=== PATIENT | female | born 1950 | race Caucasian/White ===

== ENCOUNTER 2016-09-30 15:36 | Inpatient (IN) | payer OTHER ==
[~2016-09-30 15:36] MED LIST: ROCURONIUM BROMIDE INJ 50 MG/5 ML VIAL IV ONE; SUCCINYLCHOLINE CHLORIDE INJ 200 MG/10 ML VIAL ONE
[2016-09-30] MEDS ORDERED: DIPH/PERTUSS(ACELL)/TETANUS VAC/PF 0.5 ML SYR (>=10YO) IM ONE (15:41)
[2016-09-30] MEDS ORDERED: CEFAZOLIN 2 GM/D5W RTU 50 ML IV ONE (15:41)
--- NOTE | 2016-09-30 15:41 | ER Document Report ---
ED Extremity Problem, Lower - General Mode of Arrival: Medic Information source: Patient, Emergency Med Personnel - HPI Patient complains to provider of: Injury Location: Ankle Where: Outdoors Associated symptoms: Other - See above <JAZMÍN BEEBE - Last Filed: 09/30/16 16:38> <MARY ANNE - Last Filed: 09/30/16 17:50> - General Chief Complaint: Ankle Injury Stated Complaint: RIGHT ANKLE INJURY Time Seen by Provider: 09/30/16 15:41 Notes: Patient is a 66 year old female who presents to the emergency department via EMS complaining of an injury to her right ankle. Patient reports she was outdoors on the 3rd step of a ladder when she fell and caught her foot in the steps causing her injury, patient reports pain with movement of the ankle. Patient was wearing slip on tennis shoes and black socks at the time, wound appears mostly clean. Patient states she takes Asa daily but is on no other medications. Patient is unsure of her last tetanus shot. Per EMS patient denies hitting her head and was given 100 of Fentanyl en route. Patient denies smoking but states she uses small amounts of snuff. (JAZMÍN BEEBE) - Related Data Allergies/Adverse Reactions: No Known Allergies Allergy (Verified 09/30/16 16:06) Home Medications: Current Home Medications Aspirin [Aspirin EC] 81 mg PO DAILY 09/30/16 [History] Past Medical History - General Information source: Patient - Social History Smoking Status: Never Smoker - used snuff Family History: Reviewed & Not Pertinent Surgical Hx: Negative <JAZMÍN BEEBE - Last Filed: 09/30/16 16:38> Review of Systems - Review of Systems Constitutional: No symptoms reported EENT: No symptoms reported Cardiovascular: No symptoms reported Respiratory: No symptoms reported Gastrointestinal: No symptoms reported Genitourinary: No symptoms reported Female Genitourinary: No symptoms reported Musculoskeletal: See HPI, Joint pain, Deformity Skin: No symptoms reported Hematologic/Lymphatic: No symptoms reported Neurological/Psychological: No symptoms reported -: Yes All other systems reviewed and negative <JAZMÍN BEEBE - Last Filed: 09/30/16 16:38> Physical Exam - Vital signs Interpretation: Normal - General General appearance: Appears well, Alert - HEENT Head: Normocephalic, Atraumatic - Respiratory Respiratory status: No respiratory distress - Extremities General upper extremity: Normal inspection Ankle: Deformity - Distal tibia is completely outside of wound, good dorsalis pedis pulse - Neurological Neuro grossly intact: Yes Cognition: Normal Orientation: AAOx4 Evangelina Coma Scale Eye Opening: Spontaneous Evangelina Coma Scale Verbal: Oriented Evangelina Coma Scale Motor: Obeys Commands Evangelina Coma Scale Total: 15 Speech: Normal - Psychological Associated symptoms: Normal affect, Normal mood <JAZMÍN BEEBE - Last Filed: 09/30/16 16:38> Course <JAZMÍN BEEBE - Last Filed: 09/30/16 16:38> - Diagnostic Test Radiology reviewed: Image reviewed - Complete tibio talar dislocation with fracture to the distal fibula - Consults Dr. Upton Time consulted: 16:00 Consulted provider: will see as inpatient - Requests I wash out the wound and reduce the fracture and he will see this evening. <MARY ANNE - Last Filed: 09/30/16 17:50> - Re-evaluation Re-evalutation: 09/30/16 16:35 The skin around the fracture was cleaned with surgical hands. The entire area was irrigated with 250 mL's of normal saline. An attempt at reducing the dislocation was made but was not successful. Shortly after this was attempted, the OR crew showed up to take the patient to the operating room. (MARY ANNE) - Vital Signs Vital signs: Temp Pulse Resp BP Pulse Ox 97.8 F 89 13 150/92 H 95 09/30/16 16:11 09/30/16 16:11 09/30/16 16:32 09/30/16 16:32 09/30/16 16:32 Discharge <JAZMÍN BEEBE - Last Filed: 09/30/16 16:38> - Discharge Admitting Provider: Dr. Upton Unit Admitted: OR <MARY ANNE - Last Filed: 09/30/16 17:50> - Discharge Clinical Impression: Open fracture dislocation of ankle Qualifiers: Encounter type: initial encounter Open fracture type: open type I or II Laterality: right Qualified Code(s): S82.891B - Other fracture of right lower leg, initial encounter for open fracture type I or II Condition: Stable Disposition: ADMITTED INPATIENT Scribe Attestation: 09/30/16 17:50 I personally performed the services described in the documentation, reviewed and edited the documentation which was dictated to the scribe in my presence, and it accurately records my words and actions. (MARY ANNE) Scribe Documentation - Scribe Written by Mague:: mague Valle, 09/30/16, 1557 acting as scribe for :: Jacqueline <JAZMÍN BEEBE - Last Filed: 09/30/16 16:38>
[2016-09-30] MEDS ORDERED: FENTANYL CITRATE INJ/PF 100 MCG/2 ML AMPUL IV ONE ×2 (15:51→16:37)
[2016-09-30] MEDS ORDERED: FENTANYL CITRATE INJ/PF 100 MCG/2 ML AMPUL ONE (16:27)
[2016-09-30] MEDS ORDERED: ONDANSETRON HCL INJ/PF 4 MG/2 ML SDV ONE (16:29)
[2016-09-30] MEDS ORDERED: IBUPROFEN INJ 800 MG/8 ML VIAL IV ONE (16:29)
[2016-09-30] MEDS ORDERED: MIDAZOLAM 2 MG/2 ML INJ ONE (16:29)
[2016-09-30] MEDS ORDERED: MORPHINE SULFATE 10 MG/ML INJ ONE (16:29)
[2016-09-30] MEDS ORDERED: FENTANYL CITRATE INJ/PF 250 MCG/5 ML AMPULE ONE (16:29)
[2016-09-30] MEDS ORDERED: PROPOFOL INJ 200 MG/20 ML VIAL IV ONE (16:29)
[2016-09-30] MEDS ORDERED: DEXAMETHASONE SOD PHOSPHATE INJ 4 MG/1 ML VIAL ONE (16:29)
[2016-09-30] MEDS ORDERED: BUPIVACAINE HCL 0.5 % INJ/PF 30 ML SDV ONE (16:37)
--- NOTE | 2016-09-30 17:26 | PDOC H&P ---
History of Present Illness Admission Date/PCP: 09/30/16 16:39 Patient complains of: Right Ankle Injury History of Present Illness: TALI MCKINNEY is a 66 year old female Patient is a 66 year old female who presents to the emergency department via EMS complaining of an injury to her right ankle. Patient reports she was outdoors on the 3rd step of a ladder when she fell and caught her foot in the steps causing her injury, patient reports pain with movement of the ankle. Patient noted open wound. No gross contamination according to emergency room staff. Patient is unsure of her last tetanus shot. Per EMS patient denies hitting her head and was given 100 of Fentanyl en route. Denies numbness or tingling. Current pain 10/10 worse with motion. Social History Smoking Status: Never Smoker - used snuff - Advance Directive Resuscitation Status: Full Code Family History Family History: Reviewed & Not Pertinent Parental Family History Reviewed: No Children Family History Reviewed: No Sibling(s) Family History Reviewed.: No Medication/Allergy Home Medications: Aspirin [Aspirin EC] 81 mg PO DAILY 09/30/16 Allergies/Adverse Reactions: No Known Allergies Allergy (Verified 09/30/16 16:06) Review of Systems Constitutional: ABSENT: chills, fever(s), headache(s), weight gain, weight loss Eyes: ABSENT: visual disturbances Ears: ABSENT: hearing changes Cardiovascular: ABSENT: chest pain, dyspnea on exertion, edema, orthropnea, palpitations Respiratory: ABSENT: cough, hemoptysis Gastrointestinal: ABSENT: abdominal pain, constipation, diarrhea, hematemesis, hematochezia, nausea, vomiting Genitourinary: ABSENT: dysuria, hematuria Integumentary: ABSENT: rash, wounds Neurological: ABSENT: abnormal gait, abnormal speech, confusion, dizziness, focal weakness, syncope Psychiatric: ABSENT: anxiety, depression, homidical ideation, suicidal ideation Endocrine: ABSENT: cold intolerance, heat intolerance, menstrual abnormalities, polydipsia, polyuria Hematologic/Lymphatic: ABSENT: easy bleeding, easy bruising, lymphadenopathy Physical Exam Vital Signs: Temp Pulse Resp BP Pulse Ox 97.8 F 89 13 150/92 H 95 09/30/16 16:11 09/30/16 16:11 09/30/16 16:32 09/30/16 16:32 09/30/16 16:32 General appearance: PRESENT: no acute distress, well-developed, well-nourished Head exam: PRESENT: atraumatic, normocephalic Eye exam: PRESENT: conjunctiva pink, EOMI, PERRLA. ABSENT: scleral icterus Ear exam: PRESENT: normal external ear exam Mouth exam: PRESENT: moist, tongue midline Neck exam: PRESENT: full ROM. ABSENT: carotid bruit, JVD, lymphadenopathy, thyromegaly Respiratory exam: PRESENT: unlabored Cardiovascular exam: PRESENT: RRR. ABSENT: diastolic murmur, rubs, systolic murmur Pulses: PRESENT: normal dorsalis pedis pul, +2 pedal pulses bilateral Vascular exam: PRESENT: normal capillary refill GI/Abdominal exam: PRESENT: normal bowel sounds, soft. ABSENT: distended, guarding, mass, organolmegaly, rebound, tenderness Rectal exam: PRESENT: deferred Musculoskeletal exam: PRESENT: other - Right ankle: 4 cm x 4 cm open wound along the medial aspect of the knee. Distal tibia exposed. No gross contamination. Notable deformity. Intact flexion extension of the toes. Cap refill less than 2 seconds. No sensory deficits. Compartments soft and compressible no sign of compartment syndrome. Neurological exam: PRESENT: alert, awake, oriented to person, oriented to place , oriented to time, oriented to situation, CN II-XII grossly intact. ABSENT: motor sensory deficit Psychiatric exam: PRESENT: appropriate affect, normal mood. ABSENT: homicidal ideation, suicidal ideation Skin exam: PRESENT: dry, intact, warm. ABSENT: cyanosis, rash Results Impressions: Ankle X-Ray 09/30/16 15:41 IMPRESSION: Open medial malleolar fracture with medial tibia protruding through the skin surface. Complete lateral dislocation of the talus with respect to the distal tibia. Lateral displacement of the distal right fibular fragment, with acute dislocation at the talofibular joint. Status: Image reviewed by ok - X-rays demonstrate severe ankle fracture dislocation with widening of the tibial fibular articulation. Distal fibular fracture. Assessment & Plan - Diagnosis (1) Open fracture dislocation of ankle Qualifiers: Encounter type: initial encounter Open fracture type: open type I or II Laterality: right Qualified Code(s): S82.891B - Other fracture of right lower leg, initial encounter for open fracture type I or II Is this a current diagnosis for this admission?: YesPlan: On examination patient has type II ankle fracture dislocation. Today we discussed urgency operative intervention and risk factors. Given the open nature patient is certainly at high risk for infection including possible below- knee amputation if infection would occur. At this point we will proceed with operative intervention which includes irrigation and debridement right ankle with open reduction internal fixation right ankle fracture dislocation with possible external fixation. Risks include anesthetic complications, excessive bleeding, infection including amputation, injury to surrounding nerves, vessels and tendons, bruising, healing difficulties, scar formation, posttraumatic arthritis and any unforseen complication. Patient will be started on IV Ancef and Gentamicin postoperatively prophylactically. Patient is verbalizes understanding and consented for the operative procedure.
[2016-09-30] MEDS ORDERED: PROMETHAZINE HCL INJ 25 MG/1 ML VIAL IV PRN ×2 (17:43)
[2016-09-30] MEDS ORDERED: DIPHENHYDRAMINE HCL 50 MG/ML VIAL IV PRN (17:43)
[2016-09-30] MEDS ORDERED: OXYCODONE-ACETAMINOPHEN 5-325 MG TABLET PO PRN ×2 (17:43)
[2016-09-30] MEDS ORDERED: MORPHINE SULFATE 10 MG/ML INJ IV PRN (17:43)
[2016-09-30] MEDS ORDERED: FENTANYL CITRATE INJ/PF 100 MCG/2 ML AMPUL IV PRN ×3 (17:43)
[2016-09-30] MEDS ORDERED: MEPERIDINE HCL/PF INJ 25 MG/1 ML DISP.SYRIN IV PRN (17:43)
[2016-09-30 18:26] LABS: HEMATOCRIT 34.8 % (36.0-47.0); HEMOGLOBIN 11.8 g/dL (12.0-15.5); HGB HCT DIFFERENCE 0.6; MEAN CORPUSCULAR HGB CONC 33.8 g/dL (32.0-36.0); MEAN CORPUSCULAR VOLUME 80 fl (80-97); RED BLOOD COUNT 4.36 10^6/uL (3.72-5.28); RED CELL DISTRIBUTION WIDTH 15.1 % (11.5-14.0); WHITE BLOOD COUNT 8.9 10^3/uL (4.0-10.5)
[2016-09-30 18:51] LABS: ANION GAP 11 (5-19); BLOOD UREA NITROGEN 16 mg/dL (7-20); CALCIUM 8.9 mg/dL (8.4-10.2); CARBON DIOXIDE 24 mmol/L (22-30); CHLORIDE 104 mmol/L (98-107); CREATININE RESULT 0.99 mg/dL (0.52-1.25); GLUCOSE 110 mg/dL (75-110); POTASSIUM 4.4 mmol/L (3.6-5.0); SODIUM 139.1 mmol/L (137-145)
[2016-09-30] MEDS ORDERED: MAG HYDROX/AL HYDROX/SIMETH SUSP 30 ML UDCUP PO PRN (19:17)
[2016-09-30] MEDS ORDERED: ONDANSETRON HCL INJ/PF 4 MG/2 ML SDV IV PRN (19:17)
[2016-09-30] MEDS ORDERED: PROMETHAZINE HCL 25 MG TABLET PO PRN (19:17)
[2016-09-30] MEDS ORDERED: HYDROMORPHONE HCL INJ/PF 2 MG/ML AMPULE IV PRN (19:21)
[2016-09-30] MEDS ORDERED: IPRATROPIUM/ALBUTEROL 0.5-2.5 MG/3 ML AMPUL NEB ONE ×2 (19:27→20:30)
[2016-09-30] MEDS ORDERED: CEFAZOLIN 2 GM/D5W RTU 2 GM/50 ML RTUPB IV SCH (19:30)
--- NOTE | 2016-09-30 19:38 | Operative Report ---
Operative Report DATE OF SURGERY: 09/30/16 PREOPERATIVE DIAGNOSIS: Grade II Open Bimalleolar Fracture Dislocation POSTOPERATIVE DIAGNOSIS: Same OPERATION: 1. Excisional Debridement of Open Fracture Right Grade II Open Bimalleolar Ankle Fracture Dislocation. 2. ORIF Right Bimalleolar Ankle Fracture. 3. Syndesmotic Fixatoin Right Ankle SURGEON: JACINDA KENT ANESTHESIA: GA COMPLICATIONS: None ESTIMATED BLOOD LOSS: Minimal PROCEDURE: Indication for above procedure: 66-year-old female who sustained a fall from a ladder while painting onto her right ankle. Patient sustained a open wound and dislocation and was seen in the emergency room. She received tetanus and IV antibiotics. Orthopedics was consult and directly admitted the patient and set her up for emergent operative intervention. I discussed the high-risk nature patient's injury including infection. I also discussed the details of the operative procedure patient verbalized understanding and consented for the procedure. Procedure In Detail: Patient was seen and evaluated in the preoperative holding area. The RIGHT lower extremity was initialized and marked. Patient received 2g of Ancef IV for bacterial prophylaxis in the emergency room. Patient was taken back to the operative room where transferred to the operative table and placed under general anesthesia. Once they were adequately anesthetized a nonsterile tourniquet was placed on the lower extremity. A surgical team debriefing was performed ensuring all instrumentation was available, the surgical procedure was discussed with possible concerns reviewed. The lower extremity was preprepped with chlorhexidine scrub and then prepped with Betadine and draped in a sterile fashion. A timeout was done identifying correct patient, procedure and extremity everyone in attendance agree with this and verbalized no concerns. The extremity was exsanguinated the tourniquet was inflated to 300 mmHg. Medially the wound extended in a transverse nature with irregular edges anteriorly extended approximate 6 cm. Wound edges were carefully debrided and the undersurface of the tibial plafond was exposed through the medial wound. The fracture at the level of the medial malleolus was copiously irrigated with normal saline and curetted. There was no gross contamination of the wound. The area was irrigated with gravity irrigation total of 3 L. Once this was complete I turned my attention to fixation of the fibula fracture. Longitudinal skin incision was made centered over the fibular fracture. Blunt dissection was performed identifying the superficial peroneal nerve which was retracted in the anterior direction. Deep soft tissues were then split in line with the fibula fracture with attempts to avoid the underlying periosteum. There was significant comminution of the fracture. I was able to adequately reduce the tibial plafond and C-arm fluoroscopy was obtained confirming acceptable reduction. I then utilized a Grayling distal fibular titanium locking plate and pinned into position C-arm fluoroscopy was obtained confirming appropriate placement. Before final fixation the plate was contoured to fit the fibula shaft. I then fixated the plate distally with a bicortical screw bringing the plate down to bone. A second hole was filled utilizing the appropriate size locking screw. C-arm fluoroscopy was then obtained and the plate was reduced to the proximal fibular shaft with a bone clamp. C-arm fluoroscopy confirmed reduction of the fracture with worship of fibular height. I then fixated the plate proximally with bicortical fixation. Fixation was completed proximally with an additional bicortical screw and a locking screw. I then completed fixation distally with an additional 3 locking screws. Final C-arm fluoroscopy radiographs of the fibular fracture ORIF were obtained demonstrating worship of fibular height with comminution of the fracture site and appropriate placement. I then turned my attention to medially. Given the lack of gross contamination and fracture instability I made the decision to proceed with definitive fixation of the medial malleolus fracture. A drill hole was placed proximal to the fracture site and a bone reduction tenaculum was utilized to anatomically reduce the medial malleolus fracture confirmed with C-arm fluoroscopy. I then made a longitudinal skin incision distal to the open fracture site and placed 2 threaded K wires perpendicular to the fracture along the medial malleolus. C-arm fluoroscopy was obtained confirming appropriate reduction of the fracture. I then measured the appropriate size 4.0 mm cannulated screws into 55 mm 4.0 mm partially-threaded cancellus cannulated screws were placed. Optimal interfragmentary compression and fixation was achieved. I then copiously irrigated the wound with normal saline. Final C-arm fluoroscopy demonstrated instability at the tibia-fibula joint indicating syndesmosis disruption. Thus I turned my attention to the lateral side once again. The syndesmosis was then reduced and confirmed with C-arm fluoroscopy. I then removed one of my distal cortical screws and drilled from posterior to anterior obtaining fixation in all 4 cortices of the fibula and tibia. The exit point of the syndesmotic screw could be felt through the open medial wound confirming fixation of the far cortex of the tibia. A partially threaded 3.5 mm cortex screw was then placed obtaining 4 cortices of fixation the ankle was held reduced with the foot in dorsiflexion during placement. I then drilled once again through the plate from posterior to anterior obtaining 4 cortices of fixation this was confirmed under direct visualization to the open fracture site and the appropriate size syndesmotic screw was placed once again. Final C- arm fluoroscopy radiographs were then obtained demonstrating worship of the ankle mortise with no evidence of medial space widening with external rotation. There is mild instability in anterior posterior direction which was reduced with mild plantar flexion. 30 mL of 0.5% Marcaine without epinephrine was injected for postoperative pain control. The wounds were once again irrigated with normal saline. Deep soft tissues were closed with 2-0 Vicryl in the subcutaneous tissues closed with 3-0 Vicryl. The open wound was not closed within the subcuticular portion the irregularity with a bone punctured through anteriorly was left open for drainage. The remaining skin was closed with chacorta. Wound was dressed with Xeroform 4 x 4's ABDs and patient was placed in a well-padded 3 sided plaster splint with the foot in mild plantar flexion maintaining reduction of the ankle mortise. Sponge counts, instrument counts, needle counts counts were correct. Patient was then awoken from anesthesia. Transferred from the operating room table to the operating room stretcher. There was no intraoperative complications patient tolerated procedure well stable to PACU. Postoperative plan: Patient will be admitted to the hospital for 48 hours of IV antibiotics and we will add gentamicin to Ancef given severe open nature of the fracture and questionable contamination at the site of injury, despite the fact there is no gross contamination of the wound site intraoperatively. Patient will then be discharged home on Keflex. Patient will be started on heparin for DVT prophylaxis. She will maintain nonweightbearing for approximately 3 months until syndesmotic screw removal.
[2016-09-30] MEDS: ZOLPIDEM TARTRATE 5 MG TABLET PO SCH (21:39)
[2016-09-30] MEDS: HEPARIN SOD (PORCINE) 5,000 UNIT/ML 1 ML SYRINGE SUBCUT SCH (21:39)
[2016-09-30] MEDS: GENTAMICIN SULFATE INJ 80 MG/2 ML VIAL IV SCH (21:39)
[2016-10-01] MEDS: CEFAZOLIN 2 GM/D5W RTU 2 GM/50 ML RTUPB IV SCH ×4 (04:00→21:32)
[2016-10-01] MEDS: GENTAMICIN SULFATE INJ 80 MG/2 ML VIAL IV SCH ×3 (05:39→21:32)
[2016-10-01] MEDS: HEPARIN SOD (PORCINE) 5,000 UNIT/ML 1 ML SYRINGE SUBCUT SCH ×3 (05:39→21:32)
[2016-10-01 05:58] LABS: HEMATOCRIT 34.1 % (36.0-47.0); HEMOGLOBIN 11.4 g/dL (12.0-15.5); HGB HCT DIFFERENCE 0.1; MEAN CORPUSCULAR HEMOGLOBIN 26.9 pg (27.0-33.4); MEAN CORPUSCULAR HGB CONC 33.5 g/dL (32.0-36.0); MEAN CORPUSCULAR VOLUME 80 fl (80-97); RED BLOOD COUNT 4.24 10^6/uL (3.72-5.28); RED CELL DISTRIBUTION WIDTH 15.2 % (11.5-14.0); WHITE BLOOD COUNT 10.8 10^3/uL (4.0-10.5)
[2016-10-01 06:14] LABS: ANION GAP 11 (5-19); BLOOD UREA NITROGEN 15 mg/dL (7-20); CALCIUM 8.8 mg/dL (8.4-10.2); CARBON DIOXIDE 25 mmol/L (22-30); CHLORIDE 101 mmol/L (98-107); CREATININE RESULT 0.81 mg/dL (0.52-1.25); GLUCOSE 143 mg/dL (75-110); POTASSIUM 4.6 mmol/L (3.6-5.0)
--- NOTE | 2016-10-01 10:50 | PDOC PROGRESS REPORT ---
Subjective Progress Note for:: 10/01/16 Subjective:: Patient seen today on rounds. Pain control. She underwent physical therapy was able to implant fairly well maintaining nonweightbearing in the rolling walker. Denies fever chills or sweats. Physical Exam Vital Signs: Temp Pulse Resp BP Pulse Ox 97.6 F 79 16 100/76 97 10/01/16 07:48 10/01/16 07:48 10/01/16 07:48 10/01/16 07:48 10/01/16 07:48 Intake & Output 09/30/16 10/01/16 10/02/16 06:59 06:59 06:59 Intake Total 630 Balance 630 General appearance: PRESENT: no acute distress Musculoskeletal exam: PRESENT: other - Right ankle: Splint clean/dry/intact. Intact flexion extension of his toes. Cap refill less than 2 seconds. No sensory deficits. No pain with passive stretch. Results Laboratory Results: 10/01/16 05:13 10/01/16 05:13 10/01/16 10/01/16 05:13 05:13 WBC 10.8 H RBC 4.24 Hgb 11.4 L Hct 34.1 L MCV 80 MCH 26.9 L MCHC 33.5 RDW 15.2 H Plt Count 117 L Sodium 137.0 Potassium 4.6 Chloride 101 Carbon Dioxide 25 Anion Gap 11 BUN 15 Creatinine 0.81 Est GFR ( Amer) > 60 Est GFR (Non-Af Amer) > 60 Glucose 143 H Calcium 8.8 Impressions: Fluoroscopy 09/30/16 00:00 IMPRESSION: As above. Ankle X-Ray 09/30/16 15:41 IMPRESSION: Open medial malleolar fracture with medial tibia protruding through the skin surface. Complete lateral dislocation of the talus with respect to the distal tibia. Lateral displacement of the distal right fibular fragment, with acute dislocation at the talofibular joint. Assessment & Plan - Diagnosis (1) Open fracture dislocation of ankle Qualifiers: Encounter type: initial encounter Open fracture type: open type I or II Laterality: right Qualified Code(s): S82.891B - Other fracture of right lower leg, initial encounter for open fracture type I or II Is this a current diagnosis for this admission?: YesPlan: Status post I&D with ORIF open bimalleolar ankle fracture #1 heparin for DVT prophylaxis. #2 IV antibiotics prophylactically Ancef and gentamicin for 48 hours #3 physical therapy nonweightbearing #4 discharge planning patient will be stable for discharge home on 10/02/16.
[2016-10-01] MEDS: DOCUSATE SODIUM 100 MG CAPSULE PO SCH (11:28)
[2016-10-01] MEDS: OXYCODONE-ACETAMINOPHEN 5-325 MG TABLET PO PRN ×2 (11:30→18:32)
[2016-10-01] MEDS: ZOLPIDEM TARTRATE 5 MG TABLET PO SCH (21:32)
[2016-10-02 04:21] LABS: HEMATOCRIT 32.4 % (36.0-47.0); HEMOGLOBIN 10.9 g/dL (12.0-15.5); HGB HCT DIFFERENCE 0.3; MEAN CORPUSCULAR HGB CONC 33.7 g/dL (32.0-36.0); MEAN CORPUSCULAR VOLUME 80 fl (80-97); RED BLOOD COUNT 4.04 10^6/uL (3.72-5.28); RED CELL DISTRIBUTION WIDTH 15.3 % (11.5-14.0); WHITE BLOOD COUNT 8.5 10^3/uL (4.0-10.5)
[2016-10-02 04:29] LABS: ANION GAP 7 (5-19); BLOOD UREA NITROGEN 15 mg/dL (7-20); CALCIUM 8.3 mg/dL (8.4-10.2); CARBON DIOXIDE 29 mmol/L (22-30); CHLORIDE 103 mmol/L (98-107); CREATININE RESULT 0.89 mg/dL (0.52-1.25); GLUCOSE 100 mg/dL (75-110); POTASSIUM 4.3 mmol/L (3.6-5.0); SODIUM 139.1 mmol/L (137-145)
[2016-10-02] MEDS: CEFAZOLIN 2 GM/D5W RTU 2 GM/50 ML RTUPB IV SCH ×2 (05:28→08:15)
[2016-10-02] MEDS: HEPARIN SOD (PORCINE) 5,000 UNIT/ML 1 ML SYRINGE SUBCUT SCH (05:28)
[2016-10-02] MEDS: GENTAMICIN SULFATE INJ 80 MG/2 ML VIAL IV SCH (05:29)
[2016-10-02] MEDS: OXYCODONE-ACETAMINOPHEN 5-325 MG TABLET PO PRN (08:28)
[2016-10-02] MEDS: DOCUSATE SODIUM 100 MG CAPSULE PO SCH (09:49)
[2016-10-02 12:32] VITALS: BP 133/58
--- NOTE | 2016-10-08 07:53 | PDOC DISCHARGE SUMMARY ---
General - Admit/Disc Date/PCP Admission Date/Primary Care Provider: 09/30/16 19:17 Discharge Date: 10/02/16 - Discharge Diagnosis (1) Open fracture dislocation of ankle Is this a current diagnosis for this admission?: Yes - Additional Information Resuscitation Status: Full Code Discharge Activity: No Driving, Keep Legs Elevated, No Lifting Over 10 Pounds, No tub bath Home Medications: Aspirin [Aspirin 325 mg Tablet] 325 mg PO BID #46 pkg 10/01/16 Cephalexin Monohydrate [Keflex 500 mg Capsule] 500 mg PO QID #28 capsule Oxycodone HCl/Acetaminophen [Percocet 5-325 mg Tablet] 1 - 2 tab PO ASDIR PRN # 45 tablet 10/01/16 History of Present Illness Patient complains of: Right Ankle Deformity History of Present Illness: TALI MCKINNEY is a 66 year old female Patient is a 66 year old female who presents to the emergency department via EMS complaining of an injury to her right ankle. Patient reports she was outdoors on the 3rd step of a ladder when she fell and caught her foot in the steps causing her injury, patient reports pain with movement of the ankle. Patient noted open wound. No gross contamination according to emergency room staff. Patient is unsure of her last tetanus shot. Per EMS patient denies hitting her head and was given 100 of Fentanyl en route. Denies numbness or tingling. Current pain 10/10 worse with motion. Hospital Course Hospital Course: 66-year-old female who sustained a open fracture dislocation of her ankle. This occurred on 09/30/16 she was seen at the [facility] room where she was properly given IV antibiotics and tetanus. She was taken to the operative room urgently for her open fracture dislocation on 09/30/16. She underwent irrigation debridement with open reduction internal fixation bimalleolar ankle fracture. Postoperatively patient was seen by physical therapy and was ambulating well with a rolling walker. She was continued on IV gentamicin and Ancef prophylactically for her grade II open malleolus ankle fracture dislocation. Throughout her hospital course she was receiving heparin for DVT prophylaxis. On 10/02/16 patient received 48 hours of IV antibiotics and was progressing appropriately. At that point patient was deemed orthopedically and medically stable for discharge to home. Patient was to maintain nonweightbearing in her right lower extremity. She will continue enteric-coated aspirin 325 mg twice a day for DVT prophylaxis. She will follow-up in the office with me in 7 days for wound check and patient will be set up for outpatient physical therapy at that time. Physical Exam Vital Signs: Temp Pulse Resp BP Pulse Ox 98.2 F 74 16 133/58 H 98 10/02/16 13:25 10/02/16 13:25 10/02/16 13:25 10/02/16 13:25 10/02/16 13:25 General appearance: PRESENT: no acute distress, cooperative Head exam: PRESENT: atraumatic, normocephalic Ear exam: PRESENT: normal external ear exam Mouth exam: PRESENT: moist Neck exam: PRESENT: full ROM Respiratory exam: PRESENT: unlabored Cardiovascular exam: PRESENT: RRR Pulses: PRESENT: +2 pedal pulses bilateral Vascular exam: PRESENT: normal capillary refill Musculoskeletal exam: PRESENT: other - Right lower extremity: Splint clean/dry/ intact no erythema or drainage. Intact flexion extension of the toes. No pain with passive stretch. Cap refill less than 2 seconds. Neurological exam: PRESENT: alert, awake, oriented to person, oriented to place , oriented to time, oriented to situation, CN II-XII grossly intact. ABSENT: motor sensory deficit Psychiatric exam: PRESENT: normal mood Skin exam: PRESENT: normal color, warm Results Laboratory Results: 10/02/16 04:01 10/02/16 04:01 Impressions: Fluoroscopy 09/30/16 00:00 IMPRESSION: As above. Ankle X-Ray 09/30/16 15:41 IMPRESSION: Open medial malleolar fracture with medial tibia protruding through the skin surface. Complete lateral dislocation of the talus with respect to the distal tibia. Lateral displacement of the distal right fibular fragment, with acute dislocation at the talofibular joint. Plan Discharge Plan: Patient progressed appropriately throughout her hospital course. On 10/02/16 she was with Mary makes it for discharge to home. Patient is to maintain nonweightbearing in her right lower extremity continue by mouth antibiotics prophylactically for her open fracture. She will be started on enteric-coated aspirin 325 mg twice a day for DVT prophylaxis. Patient is to call if any questions concerns or increasing pain, swelling or temperature greater than 101.5 patient was read postoperative instructions verbalized understanding and thus was stable for discharge.
== END 2016-10-02 14:29 | disposition home or self-care (01) | DRG 494 ==
LOC: OROUT 15:36 → UNDOADMIN 16:39 → EH 16:39 → 5 20:20 → UNDODISIN 10-02 13:38
PROVIDERS: ADMIT Orthopaedic Surgery; ATTEND Orthopaedic Surgery
PROC: 0QSG04Z Reposition Right Tibia with Internal Fixation Device, Open Approach (ICD-10-PCS; 2016-09-30)
PROC: 0QSJ04Z Reposition Right Fibula with Internal Fixation Device, Open Approach (ICD-10-PCS; 2016-09-30)
PROC: 3E0234Z Introduction of Serum, Toxoid and Vaccine into Muscle, Percutaneous Approach (ICD-10-PCS; principal; 2016-09-30 17:45)
DX: S82.841B Displaced bimalleolar fracture of right lower leg, initial encounter for open fracture type I or II (principal); W11.XXXA Fall on and from ladder, initial encounter; Y93.9 Activity, unspecified; Y92.018 Other place in single-family (private) house as the place of occurrence of the external cause; Z79.82 Long term (current) use of aspirin; Z72.0 Tobacco use; Z23 Encounter for immunization
CPT/HCPCS: 01480; 36415; 80048; 85027; 87040; 90471; 90715; 96365; 99285; C1713; C1769; J0330; J0690; J1100; J1580; J1644; J1741; J2250; J2270; J2405; J2704; J3010; J3490; J7620

== ENCOUNTER 2017-01-14 07:19 | Day surgery (SDC) | payer OTHER ==
[2017-01-07 09:09] LABS: ABSOLUTE EOSINOPHILS # (AUTO) 0.1 10^3/uL (0.0-0.6); ABSOLUTE LYMPHOCYTES (AUTO) 2.1 10^3/uL (0.5-4.7); ABSOLUTE MONOCYTES (AUTO) 0.4 10^3/uL (0.1-1.4); ABSOLUTE NEUT (AUTO) 3.5 10^3/uL (1.7-8.2); BASOPHILS % (AUTO) 0.6 % (0-2); EOSINOPHILS % (AUTO) 1.3 % (0-6); HEMATOCRIT 39.2 % (36.0-47.0); HEMOGLOBIN 13.3 g/dL (12.0-15.5); HGB HCT DIFFERENCE 0.7; LYMPHOCYTES % (AUTO) 34.3 % (13-45); MEAN CORPUSCULAR HEMOGLOBIN 26.8 pg (27.0-33.4); MEAN CORPUSCULAR HGB CONC 33.9 g/dL (32.0-36.0); MEAN CORPUSCULAR VOLUME 79 fl (80-97); MONOCYTES % (AUTO) 5.9 % (3-13); RED BLOOD COUNT 4.95 10^6/uL (3.72-5.28); RED CELL DISTRIBUTION WIDTH 15.3 % (11.5-14.0); SEGMENTED NEUTROPHILS % (AUTO) 57.9 % (42-78); WHITE BLOOD COUNT 6.1 10^3/uL (4.0-10.5)
[2017-01-07 09:15] LABS: APPEARANCE,URINE CLEAR; BILIRUBIN,URINE NEGATIVE (NEGATIVE); GLUCOSE, URINE NEGATIVE (NEGATIVE); KETONES,URINE NEGATIVE (NEGATIVE); LEUKOCYTE ESTERASE,URINE NEGATIVE (NEGATIVE); NITRITE,URINE NEGATIVE (NEGATIVE); PROTEIN,URINE NEGATIVE (NEGATIVE); URINE SPECIFIC GRAVITY 1.003; UROBILINOGEN,URINE NEGATIVE mg/dL (<2.0)
[2017-01-07 09:40] LABS: ANION GAP 14 (5-19); BLOOD UREA NITROGEN 12 mg/dL (7-20); CALCIUM 9.8 mg/dL (8.4-10.2); CARBON DIOXIDE 30 mmol/L (22-30); CHLORIDE 96 mmol/L (98-107); CREATININE RESULT 0.85 mg/dL (0.52-1.25); GLUCOSE 94 mg/dL (75-110); POTASSIUM 4.8 mmol/L (3.6-5.0); SODIUM 139.8 mmol/L (137-145)
--- NOTE | 2017-01-07 10:15 | RADIOLOGY REPORT (SQ) ---
EXAM DESCRIPTION: CHEST PA/LATERAL COMPLETED DATE/TIME: 01/07/2017 9:03 am REASON FOR STUDY: PRE-OP COMPARISON: None. EXAM PARAMETERS: NUMBER OF VIEWS: two views TECHNIQUE: Digital Frontal and Lateral radiographic views of the chest acquired. RADIATION DOSE: NA LIMITATIONS: none FINDINGS: LUNGS AND PLEURA: No opacities, masses or pneumothorax. No pleural effusion. MEDIASTINUM AND HILAR STRUCTURES: No masses or contour abnormalities. HEART AND VASCULAR STRUCTURES: Heart normal size. No evidence for failure. BONES: No acute findings. HARDWARE: None in the chest. OTHER: No other significant finding. IMPRESSION: NO SIGNIFICANT RADIOGRAPHIC FINDING IN THE CHEST. TECHNICAL DOCUMENTATION: JOB ID: [id number] [employer]- All Rights Reserved
--- NOTE | 2017-01-07 14:10 | EKG REPORT ---
SEVERITY:- NORMAL ECG - SINUS RHYTHM : Confirmed by: Luis E Rodgers MD 07-Jan-2017 14:09:53
[~2017-01-14 07:19] MED LIST changes: +CEFAZOLIN 2 GM/D5W RTU 2 GM/50 ML RTUPB IV PRN; +LACTATED RINGERS 1000 ML IV PRN; +LIDOCAINE 0.5% INJ-PF (5 MG/ML) 50 ML SDV SUBCUT PRN; -ROCURONIUM BROMIDE INJ 50 MG/5 ML VIAL IV ONE; -SUCCINYLCHOLINE CHLORIDE INJ 200 MG/10 ML VIAL ONE
[2017-01-14] MEDS ORDERED: BUPIVACAINE HCL 0.5 % INJ/PF 30 ML SDV ONE (07:42)
[2017-01-14] MEDS ORDERED: FENTANYL CITRATE INJ/PF 100 MCG/2 ML AMPUL ONE (10:12)
[2017-01-14] MEDS ORDERED: MIDAZOLAM 2 MG/2 ML INJ ONE (10:12)
[2017-01-14] MEDS ORDERED: PROPOFOL INJ 200 MG/20 ML VIAL IV ONE (10:13)
[2017-01-14] MEDS ORDERED: ONDANSETRON HCL INJ/PF 4 MG/2 ML SDV IV PRN ×2 (10:50→11:06)
[2017-01-14] MEDS ORDERED: DIPHENHYDRAMINE HCL 50 MG/ML VIAL IV PRN (10:50)
[2017-01-14] MEDS ORDERED: FENTANYL CITRATE INJ/PF 100 MCG/2 ML AMPUL IV PRN ×3 (10:50)
[2017-01-14] MEDS ORDERED: MORPHINE SULFATE 10 MG/ML INJ IV PRN (10:50)
[2017-01-14] MEDS ORDERED: OXYCODONE-ACETAMINOPHEN 5-325 MG TABLET PO PRN (11:06)
--- NOTE | 2017-01-14 11:06 | PDOC DISCHARGE SUMMARY ---
Discharge Summary (SDC) - Discharge Final Diagnosis: Removal Hardware Right Ankle Date of Surgery: 01/14/17 Discharge Date: 01/14/17 Condition: Good Treatment or Instructions: Schedule Follow Up w/ Dr. Micky Upton @ [facility] for Surgery to be seen in 10-14 days or as scheduled [place]: [place]: [place]: May remove dressing on postop day #3, keep incision covered and dry. Ice and elevate May begin weightbearing as tolerated. Stool softener of choice when on pain medication. Prescriptions: Hydrocodone/Acetaminophen [Anderson 5-325 mg Tablet] 1 tab PO Q6 PRN #20 tablet PRN Reason: Discharge Diet: As Tolerated Respiratory Treatments at Home: Deep Breathing/Coughing, Incentive Spirometer Discharge Activity: No Lifting Over 10 Pounds, No Lifting/Push/Pulling Report the Following to Your Physician Immediately: Fever over 101 Degrees, Unusual Bleeding, Redness, Swelling, Warmth, Increased Soreness
--- NOTE | 2017-01-14 11:06 | Operative Report ---
Operative Report DATE OF SURGERY: 01/14/17 PREOPERATIVE DIAGNOSIS: Retained Hardware Right Ankle S/p ORIF Ankle POSTOPERATIVE DIAGNOSIS: Same OPERATION: Hardware Removal Right Ankle SURGEON: JACINDA KENT ANESTHESIA: LMAC COMPLICATIONS: None ESTIMATED BLOOD LOSS: Minimal PROCEDURE: Indication for above procedure: 66-year-old female with who underwent open reduction internal fixation medial lateral malleolus with syndesmotic fixation. Patient progressed appropriately and her postoperative course. At that point we discussed treatment options for hardware removal of her syndesmotic screws. Risks and benefits were explained to the patient, patient verbalized understanding consented for the procedure. Procedure detail: Procedure In Detail: Patient was seen and evaluated in the preoperative holding area. The LOWER extremity was initialized and marked. Patient received 2g of Ancef IV for bacterial prophylaxis. Patient was taken back to the operative room where transferred to the operative table and placed under MAC anesthesia. Once they were adequately anesthetized a nonsterile tourniquet was placed on the lower extremity. A surgical team debriefing was performed ensuring all instrumentation was available, the surgical procedure was discussed with possible concerns reviewed. 20 cc of 0.5% Marcaine with epinephrine was injected along the skin incision. The right lower extremity was prepped with ChloraPrep and draped in a sterile fashion. A timeout was done identifying correct patient, procedure and extremity everyone in attendance agree with this and verbalized no concerns. The extremity was exsanguinated the tourniquet was inflated to 250 mmHg. With the assistance of C-arm fluoroscopy the syndesmotic screws were localized. Skin incision was made blunt dissection was performed until the 3.5 mm fully threaded syndesmotic screw were then identified. Both syndesmotic screws were successfully removed in their entirety. Final C-arm fluoroscopy was obtained demonstrating successful removal of hardware no evidence of syndesmotic instability. Wound was then copiously irrigated with normal saline. Skin was closed with interrupted 4-0 nylon suture. Wound was dressed with a soft dressing. Sponge counts, instrument counts, needle counts counts were correct. Patient was then awoken from anesthesia. Transferred from the operating room table to the operating room stretcher. There was no intraoperative complications patient tolerated procedure well stable to PACU. Postoperative plan: Patient will follow-up the office in 2 weeks. At which point we will proceed with suture removal and radiographs. She may begin weightbearing as tolerated.
[2017-01-14 13:39] VITALS: BP 141/85
[2017-01-14] MEDS ORDERED: ONDANSETRON HCL INJ/PF 4 MG/2 ML SDV ONE (14:31)
--- NOTE | 2017-01-14 16:59 | RADIOLOGY REPORT (SQ) ---
EXAM DESCRIPTION: ANKLE RIGHT AP/LATERAL; NO CHG FLUORO COMPLETED DATE/TIME: 01/14/2017 11:27 am REASON FOR STUDY: RT ANKLE HARDWARE REMOVAL T84.398A [facility] COMPL OF OTH BONE DEVICES, IMPLANTS AND G RAFTS COMPARISON: Prior exam 09/30/2016 FLUOROSCOPY TIME: 4 seconds 6 images saved to PACS. TECHNIQUE: Intra-operative images acquired during surgical procedure to evaluate progress. NUMBER OF IMAGES: 6 LIMITATIONS: None. FINDINGS: Metal hardware about the ankle similar to previous. IMPRESSION: IMAGE(S) OBTAINED DURING PROCEDURE. COMMENT: Quality ID [id number]: Final reports for procedures using fluoroscopy that document radiation exp osure indices, or exposure time and number of fluorographic images (if radiation exposure indices are not available) Please consult full operative report of the attending physician for description of the procedure. TECHNICAL DOCUMENTATION: JOB ID: [id number] [employer]- All Rights Reserved
--- NOTE | 2017-01-14 16:59 | RADIOLOGY REPORT (SQ) ---
EXAM DESCRIPTION: ANKLE RIGHT AP/LATERAL; NO CHG FLUORO COMPLETED DATE/TIME: 01/14/2017 11:27 am REASON FOR STUDY: RT ANKLE HARDWARE REMOVAL T84.398A [facility] COMPL OF OTH BONE DEVICES, IMPLANTS AND G RAFTS COMPARISON: Prior exam 09/30/2016 FLUOROSCOPY TIME: 4 seconds 6 images saved to PACS. TECHNIQUE: Intra-operative images acquired during surgical procedure to evaluate progress. NUMBER OF IMAGES: 6 LIMITATIONS: None. FINDINGS: Metal hardware about the ankle similar to previous. IMPRESSION: IMAGE(S) OBTAINED DURING PROCEDURE. COMMENT: Quality ID [id number]: Final reports for procedures using fluoroscopy that document radiation exp osure indices, or exposure time and number of fluorographic images (if radiation exposure indices are not available) Please consult full operative report of the attending physician for description of the procedure. TECHNICAL DOCUMENTATION: JOB ID: [id number] [employer]- All Rights Reserved
== END 2017-01-14 13:00 | disposition home or self-care (01) ==
LOC: OROUT 07:19
PROVIDERS: ATTEND Orthopaedic Surgery
PROC: 0QPG04Z Removal of Internal Fixation Device from Right Tibia, Open Approach (ICD-10-PCS; 2017-01-14)
PROC: 0QPJ04Z Removal of Internal Fixation Device from Right Fibula, Open Approach (ICD-10-PCS; principal; 2017-01-14 09:30)
DX: T84.398A Other mechanical complication of other bone devices, implants and grafts, initial encounter (principal); S82.851B Displaced trimalleolar fracture of right lower leg, initial encounter for open fracture type I or II; Y83.8 Other surgical procedures as the cause of abnormal reaction of the patient, or of later complication, without mention of misadventure at the time of the procedure; Z79.82 Long term (current) use of aspirin; Z47.2 Encounter for removal of internal fixation device
CPT/HCPCS: 93005; 36415; 85025; 80048; 81001; 73600; 71020; 93010; 20680; J2250; J3010; J2405; J2704; J0690; 01480